=== PATIENT | male | born 1960 | race Caucasian/White ===

== ENCOUNTER 2018-05-31 09:05 | Inpatient (IN) | payer OTHER ==
[~2018-05-31] VITALS: Ht 167.6 cm; Wt 86.6 kg
[2018-05-31 10:26] LABS: BASOPHILS ABSOLUTE AUTO 0.03 K/mm3 (0.00-0.23); BASOPHILS PERCENT AUTO 0 % (0-2); EOSINOPHILS ABSOLUTE AUTO 0.12 K/mm3 (0.00-0.68); EOSINOPHILS PERCENT AUTO 1 % (0-6); Hemoglobin 8.5 g/dL (13.5-17.5); IMMATURE GRAN ABSOLUTE AUTO 0.04 K/mm3 (0.00-0.10); IMMATURE GRAN PERCENT AUTO 0 % (0-1); LYMPHOCYTES ABSOLUTE AUTO 0.71 K/mm3 (0.84-5.20); LYMPHOCYTES PERCENT AUTO 7 % (21-46); MONOCYTES ABSOLUTE AUTO 0.72 K/mm3 (0.16-1.47); MONOCYTES PERCENT AUTO 7 % (4-13); Mean Corpuscular HGB 29.1 pg (26.0-34.0); Mean Corpuscular HGB Conc 31.5 g/dL (31.5-36.5); Mean Corpuscular Volume 93 fL (80-100); NEUTROPHILS ABSOLUTE AUTO 8.43 K/mm3 (1.96-9.15); NEUTROPHILS PERCENT AUTO 84 % (41-73); Platelet Count 238 K/mm3 (150-400); RDW Standard Deviation 43.8 fL (35.1-46.3); Red Blood Cell Count 2.92 M/mm3 (4.30-5.90); White Blood Cell Count 10.05 K/mm3 (4.00-11.30)
[2018-05-31] MEDS ORDERED: CIPR500 (10:47)
[2018-05-31] MEDS ORDERED: DOXA4 PO (10:47)
[2018-05-31 10:55] LABS: Source, Urine Clean Catch
[2018-05-31 10:59] LABS: Appearance, Urine Cloudy (Clear); Bilirubin, Urine Neg (Neg); Blood, Urine 3+ (Neg); Color, Urine Yellow (P-Yellow); Glucose Qualitative, Urine Neg (Neg); Ketones, Urine Neg (Neg); Leukocyte Esterase, Urine 3+ (Neg); Nitrite, Urine Neg (Neg); Protein, Urine 2+ (Neg); Urobilinogen, Urine NORM (Normal)
[2018-05-31 11:02] LABS: Albumin, Blood 2.8 g/dL (3.4-5.0); Albumin/Globulin Ratio 0.7 (0.8-1.8); Bilirubin, Total 0.2 mg/dL (0.1-1.0); Bun/Creatinine Ratio 11.5 (12.0-20.0); Calcium, Blood 8.5 mg/dL (8.5-10.1); Creatinine, Blood 8.69 mg/dL (0.60-1.20); Globulin, Blood 4.3 g/dL (2.2-4.0); Total Protein, Blood 7.1 g/dL (6.4-8.2)
[2018-05-31 11:08] LABS: White Blood Cells, Urine TNTC /hpf (0-5)
[2018-05-31 11:10] LABS: Red Blood Cells, Urine 0-2 /hpf (0-2)
[2018-05-31 11:11] LABS: Bacteria Many /hpf; Squamous Epithelial Cells Not Seen /hpf (Few)
--- NOTE | 2018-05-31 13:45 | NUR ---
Initial Assessment: Pt arrived to room pcu 12 from ER. VSS. LS with wheezing throughout. HR reg. Bt positive with distended ABD. Melara cath draining large amounts of cloudy yellow urine that does have some sediment. +3 edema in BLE. Pt denies pain at this time. Pt oriented to room and unit. Denies questions. Call light in reach. Will monitor.
[2018-05-31 14:41] LABS: Percent Saturation 12.8 % (20.0-50.0)
--- NOTE | 2018-05-31 18:31 | NUR ---
Shift Summary: Pt resting in bed at this time. Has done well this shift. Melara Cath was draining cloudy yellow urine at admit but started to drain bloody urine with clots. Pt started to have pain in his urethra. States that it feels like he is "pissing razerblades". Pt was medicated with fentynal and order for peridium prn for bladder spasms. Pt denies other needs. No other changes this shift. Will report to night rn.
[2018-06-01 04:16] LABS: BASOPHILS ABSOLUTE AUTO 0.03 K/mm3 (0.00-0.23); BASOPHILS PERCENT AUTO 0 % (0-2); EOSINOPHILS ABSOLUTE AUTO 0.04 K/mm3 (0.00-0.68); EOSINOPHILS PERCENT AUTO 0 % (0-6); Hematocrit 29.4 % (37.0-53.0); Hemoglobin 9.7 g/dL (13.5-17.5); IMMATURE GRAN ABSOLUTE AUTO 0.03 K/mm3 (0.00-0.10); IMMATURE GRAN PERCENT AUTO 0 % (0-1); LYMPHOCYTES ABSOLUTE AUTO 0.63 K/mm3 (0.84-5.20); LYMPHOCYTES PERCENT AUTO 5 % (21-46); MONOCYTES ABSOLUTE AUTO 0.56 K/mm3 (0.16-1.47); MONOCYTES PERCENT AUTO 5 % (4-13); Mean Corpuscular HGB 29.8 pg (26.0-34.0); Mean Corpuscular Volume 91 fL (80-100); Mean Platelet Volume 9.1 fL (9.1-12.4); NEUTROPHILS ABSOLUTE AUTO 10.99 K/mm3 (1.96-9.15); NEUTROPHILS PERCENT AUTO 90 % (41-73); Platelet Count 275 K/mm3 (150-400); RDW Coefficient Variation 13.1 % (11.7-14.2); RDW Standard Deviation 43.2 fL (35.1-46.3); Red Blood Cell Count 3.25 M/mm3 (4.30-5.90); White Blood Cell Count 12.28 K/mm3 (4.00-11.30)
[2018-06-01 04:43] LABS: Alanine Aminotransfer (ALT/SGP 7 U/L (12-78); Albumin, Blood 2.5 g/dL (3.4-5.0); Albumin/Globulin Ratio 0.6 (0.8-1.8); Alk Phos 63 U/L (50-136); Anion Gap 12 mmol/L (6-16); Aspartate Aminotrans (AST/SGOT 8 U/L (12-37); Bilirubin, Direct 0.1 mg/dL (0.0-0.3); Bilirubin, Indirect 0.1 mg/dL (0.1-0.7); Bilirubin, Total 0.2 mg/dL (0.1-1.0); Blood Urea Nitrogen 77 mg/dL (8-24); Bun/Creatinine Ratio 13.1 (12.0-20.0); CO2, Blood 18 mmol/L (21-32); CPK Creatine Kinase 24 U/L (39-308); Calcium, Blood 8.1 mg/dL (8.5-10.1); Chloride, Blood 108 mmol/L (98-108); Globulin, Blood 3.9 g/dL (2.2-4.0); Glomerular Filtration Rate 10 (60-); Glucose, Blood 128 mg/dL (70-99); Magnesium, Blood 1.6 mg/dL (1.6-2.4); Phosphorus, Blood 5.1 mg/dL (2.5-4.9); Potassium, Blood 3.8 mmol/L (3.5-5.5); Sodium, Blood 138 mmol/L (136-145); Total Protein, Blood 6.4 g/dL (6.4-8.2)
--- NOTE | 2018-06-01 05:30 | NUR ---
SHIFT SUMMARY PATIENT CATHETER FLUSHED X2 D/T SLOWED UO AND TO PREVENT CLOT CLOGS. PATIENT HAD DIFFICULTY WITH PAIN CONTROL D/T POSSIBLE BLADDER SPASMS, FENTANYL INEFFECTIVE PER PATIENT. 1X FLEXERIL ORDER AQUIRED FROM RETAIL POS SPECIALIST MAGNOLIA, PATIENT STATED THAT THIS MEDICATION WAS MORE EFFECTIVE. PERRY FLOWING WELL, ALL OTHER VSS, CALL LIGHT WITHIN REACH, BED LOW AND LOCKED.
--- NOTE | 2018-06-01 17:55 | NUR ---
END OF SHIFT PT HAS HAD NO CHANGES, PT CLOTS ARE GETTING BETTER, VSS, FLUSHED FOLLEY 3 TIMES
--- NOTE | 2018-06-02 05:42 | NUR ---
PCU NOC SHIFT SUMMARY PATIENT ALERT AND ORIENTED X4 T/O SHIFT. PATIENT BEDREST PER PERSONAL COMFORT-PATIENT ENCOURAGED TO MOVE AND ROTATE IN UNIT BED T/O SHIFT. RESP E/U AT REST WITH COARSE COUGH AND LUNG SOUNDS NOTED AND WORSENING - BIOX REMAINS GREATER THAN 94% ON ROOM AIR. VSS. NO ACUTE DISTRESS NOTED AND NO ACUTE CHANGE. PATIENT DENIES ANY PAIN AND REFUSED FLEXRIL AND PERIDIUM T/O SHIFT WHEN OFFERED. PATIENTS PERRY CATH REMAINS IN PLACE AND PATENT DRAINING APPROX 1500 MLS OF URINE DURING NOC SHIFT. ABD REMAINS DISTENDED. FLUIDS RUNNING PER EMAR. PATIENT ENCOURAGED TO COUGH AND DEEP BREATH AND REPOSITON PRN. NO ACUTE NOTED. HEART RATE REMAINS 90'S SINUS WITH PAC'S. WILL CONTINUE TO MONITOR AND GIVE REPORT TO DAYSHIFT RN.
[2018-06-02 05:58] LABS: BASOPHILS ABSOLUTE AUTO 0.02 K/mm3 (0.00-0.23); BASOPHILS PERCENT AUTO 0 % (0-2); EOSINOPHILS ABSOLUTE AUTO 0.08 K/mm3 (0.00-0.68); EOSINOPHILS PERCENT AUTO 1 % (0-6); Hematocrit 27.9 % (37.0-53.0); Hemoglobin 9.1 g/dL (13.5-17.5); IMMATURE GRAN ABSOLUTE AUTO 0.06 K/mm3 (0.00-0.10); IMMATURE GRAN PERCENT AUTO 1 % (0-1); LYMPHOCYTES ABSOLUTE AUTO 0.68 K/mm3 (0.84-5.20); LYMPHOCYTES PERCENT AUTO 7 % (21-46); MONOCYTES PERCENT AUTO 5 % (4-13); Mean Corpuscular HGB 29.7 pg (26.0-34.0); Mean Corpuscular HGB Conc 32.6 g/dL (31.5-36.5); Mean Corpuscular Volume 91 fL (80-100); Mean Platelet Volume 8.9 fL (9.1-12.4); NEUTROPHILS ABSOLUTE AUTO 8.62 K/mm3 (1.96-9.15); NEUTROPHILS PERCENT AUTO 87 % (41-73); Platelet Count 244 K/mm3 (150-400); RDW Coefficient Variation 13.2 % (11.7-14.2); RDW Standard Deviation 43.4 fL (35.1-46.3); Red Blood Cell Count 3.06 M/mm3 (4.30-5.90); White Blood Cell Count 9.96 K/mm3 (4.00-11.30)
--- NOTE | 2018-06-02 06:23 | NUR ---
MD FERRO ROUNDED MD FERRO NOTIFIED (WHO IS COVERING FOR MARIE), THAT PATIENTS L/S SOUNDED COARSE W/ DRY COUGH AND POSSIBLE CONCERN FOR FLUID OVERLOAD. MD FERRO ALSO NOTIFIED THAT PATIENT CONTINUED TO HAVE LARGE URINE OUTPUT WITH BLOOD DISCOLORED URINE. NO NEW ORDERS GIVEN AT THIS TIME.
[2018-06-02 06:28] LABS: Albumin, Blood 2.2 g/dL (3.4-5.0); Anion Gap 8 mmol/L (6-16); Blood Urea Nitrogen 49 mg/dL (8-24); Bun/Creatinine Ratio 14.2 (12.0-20.0); CO2, Blood 25 mmol/L (21-32); Calcium, Blood 7.5 mg/dL (8.5-10.1); Chloride, Blood 105 mmol/L (98-108); Creatinine, Blood 3.44 mg/dL (0.60-1.20); Glomerular Filtration Rate 20 (60-); Glucose, Blood 106 mg/dL (70-99); Magnesium, Blood 1.3 mg/dL (1.6-2.4); Phosphorus, Blood 3.3 mg/dL (2.5-4.9); Potassium, Blood 3.1 mmol/L (3.5-5.5); Sodium, Blood 138 mmol/L (136-145)
--- NOTE | 2018-06-02 19:09 | NUR ---
END OF SHIFT PT HAS HAD NO CHANGES TO THE ASSESSMENT, VSS, PT ABLE TO FOLLOW COMMONADS, PT ABLE TO WALK TO THE BATHROOM, PT HAS HAD GREAT OUT PUT
--- NOTE | 2018-06-02 22:45 | NUR ---
RECEIVED HAND OFF FROM Yash WALDEN RN USING SBAR, TRANSPORTED TO ROOM VIA WHEELCHAIR. TRANSFERED TO BED WITH STANDBY ASSIST, TOLERATED WELL. PERSONAL BELONGINGS PLACED IN CHAIR AT BEDSIDE. AAO X3, CLARK, FOLLOEW ALL COMMANDS. LYING IN SEMI FOWLERS WITH EYES OPEN. ORIENETED TO ROOM, CALL SYSTEM, AND POC, VOICES UNDERSTANDING. RESPIRATIONS EVEN AND UNLABORED ON ROOM AIR. LUNG SOUNDS CLEAR ON LEFT SIDE AND COARSE ON RIGHT, REITERATED NEED TO USED FLUTTER VALVE 10X Q1HR WA, VOICES UNDERSTANDING. PERRY CATH DRAINING CLEAR YELLOW URINE WITH INTERMITTENT BLOOD TINGE AND CLOTS PRESENT. BASIL FLUSH NEEDED USING STERILE TECHNIQUE. CONTINENT OF BOWEL, REPORTES LAST BM ON 06/01/18, STATES THAT THIS IS NOT HIS NORMAL. LEFT FA 20G PIV IS PATENT, FLUSHING WITH EASE WHILE INFUSING 1/2NS AT 50ML/HR. SCD'S TO BLE FOR VTE PREVENTION. DENIES PAIN, DISCOMFORT, OR FURTHER NEEDS AT THIS TIME. SAFETY MEASURES IN PLACE. WILL CONTINUE TO MONITOR.
--- NOTE | 2018-06-02 22:54 | NUR ---
TRANSFER SUMMARY PATIENT TRANSFERED TO ROOM 210 - REPORT GIVEN TO NOAM ELAINE. PATIENT AMBULATED TO WHEEL CHAIR WELL AND WAS TRANSFERED TO NEW ROOM. IV FLUIDS CONTINUE TO RUN PER EMAR IN LEFT ARM IV. PERRY CATH DRAINING AND PATENT - PINK TO RED URINE NOTED WITH SEDIMENT NOTED. PATIENT ALERT AND ORIENTED X4. PATIENTS LUNG SOUNDS REMAIN COARSE - MD ALANIZ NOTIFIED AND DISCUSSED WITH RESPIRTORY CARE FOR NEW ORDERS - FLUTTER VALVE PROVIDED, EDUCATED AND ENCOURAGED PATIENT ON USE. NO ACUTE FINDINGS AT THIS TIME. PATIENT REMAINS ON TELE WITH HR IN THE 90 IN SINUS. VSS.
[2018-06-03 05:33] LABS: BASOPHILS ABSOLUTE AUTO 0.03 K/mm3 (0.00-0.23); BASOPHILS PERCENT AUTO 0 % (0-2); EOSINOPHILS ABSOLUTE AUTO 0.26 K/mm3 (0.00-0.68); EOSINOPHILS PERCENT AUTO 3 % (0-6); Hematocrit 29.2 % (37.0-53.0); Hemoglobin 9.4 g/dL (13.5-17.5); IMMATURE GRAN ABSOLUTE AUTO 0.06 K/mm3 (0.00-0.10); IMMATURE GRAN PERCENT AUTO 1 % (0-1); LYMPHOCYTES ABSOLUTE AUTO 1.28 K/mm3 (0.84-5.20); LYMPHOCYTES PERCENT AUTO 14 % (21-46); MONOCYTES ABSOLUTE AUTO 0.83 K/mm3 (0.16-1.47); MONOCYTES PERCENT AUTO 9 % (4-13); Mean Corpuscular HGB 30.2 pg (26.0-34.0); Mean Corpuscular HGB Conc 32.2 g/dL (31.5-36.5); Mean Platelet Volume 8.4 fL (9.1-12.4); NEUTROPHILS ABSOLUTE AUTO 6.65 K/mm3 (1.96-9.15); NEUTROPHILS PERCENT AUTO 73 % (41-73); Platelet Count 229 K/mm3 (150-400); RDW Coefficient Variation 13.2 % (11.7-14.2); RDW Standard Deviation 45.3 fL (35.1-46.3); Red Blood Cell Count 3.11 M/mm3 (4.30-5.90); White Blood Cell Count 9.11 K/mm3 (4.00-11.30)
[2018-06-03 05:37] LABS: Mean Corpuscular Volume 94 fL (80-100)
--- NOTE | 2018-06-03 05:53 | NUR ---
LYING IN SEMI FOWLERS WITH EYES CLOSED. REMAINS COMFORTABLE AT THIS TIME. NO FURTHER CHANGES SINCE TRANSFER TO ROOM. DENIES FURTHER NEEDS AT THIS TIME. SAFETY MEASURES IN PLACE. WILL CONTINUE TO MONITOR.
[2018-06-03 06:00] LABS: Albumin, Blood 2.3 g/dL (3.4-5.0); Anion Gap 8 mmol/L (6-16); Blood Urea Nitrogen 39 mg/dL (8-24); Bun/Creatinine Ratio 14.5 (12.0-20.0); CO2, Blood 27 mmol/L (21-32); Calcium, Blood 8.1 mg/dL (8.5-10.1); Chloride, Blood 102 mmol/L (98-108); Creatinine, Blood 2.69 mg/dL (0.60-1.20); Glomerular Filtration Rate 26 (60-); Glucose, Blood 93 mg/dL (70-99); Magnesium, Blood 1.7 mg/dL (1.6-2.4); Phosphorus, Blood 3.8 mg/dL (2.5-4.9); Sodium, Blood 137 mmol/L (136-145)
--- NOTE | 2018-06-03 07:30 | NUR ---
PT STATED NO BLADDER SPASMS AT THIS TIME PT HAS PINK TINT TO PERRY DRAINAGE BAG YELLOW IN THE TUBING PT STATED HE HAS HAD SOME MUSCLE TWITCHING DR FERRO BY TO SEE PT
--- NOTE | 2018-06-03 14:06 | NUR ---
pt stated he wanted to amb in the room still having some red drainge with clots
--- NOTE | 2018-06-03 14:51 | NUR ---
pt back into bed stated he had a hot flash when he was amb but it went away offered a fan pt declined at this time
--- NOTE | 2018-06-03 16:15 | NUR ---
pt watching tv no issues at this time
--- NOTE | 2018-06-03 17:50 | NUR ---
PT REQ FLEXARIL FOR BLADDER SPASMS PT SITTING UP ON EDGE OF THE BED STILL HAVING PINK DRAINAGE AND OCC CLOTS PT STATED IT FEELS LIKE HE NEEDS TO HAVE A BM
[2018-06-04 05:29] LABS: BASOPHILS ABSOLUTE AUTO 0.03 K/mm3 (0.00-0.23); BASOPHILS PERCENT AUTO 0 % (0-2); EOSINOPHILS ABSOLUTE AUTO 0.31 K/mm3 (0.00-0.68); EOSINOPHILS PERCENT AUTO 3 % (0-6); Hematocrit 28.4 % (37.0-53.0); Hemoglobin 9.1 g/dL (13.5-17.5); IMMATURE GRAN ABSOLUTE AUTO 0.04 K/mm3 (0.00-0.10); IMMATURE GRAN PERCENT AUTO 0 % (0-1); LYMPHOCYTES PERCENT AUTO 12 % (21-46); MONOCYTES ABSOLUTE AUTO 0.59 K/mm3 (0.16-1.47); MONOCYTES PERCENT AUTO 6 % (4-13); Mean Corpuscular HGB 29.8 pg (26.0-34.0); Mean Corpuscular Volume 93 fL (80-100); Mean Platelet Volume 8.7 fL (9.1-12.4); NEUTROPHILS ABSOLUTE AUTO 7.86 K/mm3 (1.96-9.15); NEUTROPHILS PERCENT AUTO 78 % (41-73); Platelet Count 223 K/mm3 (150-400); RDW Coefficient Variation 13.2 % (11.7-14.2); RDW Standard Deviation 45.1 fL (35.1-46.3); Red Blood Cell Count 3.05 M/mm3 (4.30-5.90); White Blood Cell Count 10.03 K/mm3 (4.00-11.30)
[2018-06-04 05:51] LABS: Albumin, Blood 2.3 g/dL (3.4-5.0); Anion Gap 9 mmol/L (6-16); Blood Urea Nitrogen 34 mg/dL (8-24); Bun/Creatinine Ratio 14.1 (12.0-20.0); CO2, Blood 27 mmol/L (21-32); Chloride, Blood 102 mmol/L (98-108); Creatinine, Blood 2.41 mg/dL (0.60-1.20); Glomerular Filtration Rate 29 (60-); Glucose, Blood 113 mg/dL (70-99); Phosphorus, Blood 2.9 mg/dL (2.5-4.9); Potassium, Blood 3.1 mmol/L (3.5-5.5); Sodium, Blood 138 mmol/L (136-145)
--- NOTE | 2018-06-04 06:28 | NUR ---
LYING IN SEMI FOWLERS WITH EYES CLOSED. REMAINS COMFORTABLE AT THIS TIME, DENIES ANY NEEDS OR WANTS. NO CHANGES SINCE START OF SHIFT. SAFETY MEASURES IN PLACE. WILL GIVE HAND OFF TO ONCOMING SHIFT USING SBAR DURING BEDSIDE REPORT.
--- NOTE | 2018-06-04 07:29 | NUR ---
dr tong by to see pt to trail oral kcl along with iv kcl today pt stated he still is having some mild bladder spasms when he coughs other dasilva it is better less bleeding noted in the malik drainge bag sediment still in tubing no clots at this time
--- NOTE | 2018-06-04 08:57 | NUR ---
meds given as sched dr rosales by to see pt pt asked when he may dishcarge home dr rosales stated that they will ask dr stiles when he is back on tuesday due to rf and the improvements
--- NOTE | 2018-06-04 12:04 | NUR ---
next dose of oral kcl is with dinner pt stated he had no nausea with the dose with breakfast pt visiting with family
--- NOTE | 2018-06-04 17:24 | NUR ---
PT LAYING IN BED UP TO EDGE OF THE BED TO EAT DINNER MEDS GIVEN SCHED
--- NOTE | 2018-06-04 18:00 | NUR ---
PERRY CATH TODAY LIGHT PINK NO CLOTS NOTED
[2018-06-05 05:39] LABS: BASOPHILS ABSOLUTE AUTO 0.02 K/mm3 (0.00-0.23); BASOPHILS PERCENT AUTO 0 % (0-2); EOSINOPHILS ABSOLUTE AUTO 0.34 K/mm3 (0.00-0.68); EOSINOPHILS PERCENT AUTO 4 % (0-6); Hematocrit 29.1 % (37.0-53.0); Hemoglobin 9.1 g/dL (13.5-17.5); IMMATURE GRAN ABSOLUTE AUTO 0.06 K/mm3 (0.00-0.10); IMMATURE GRAN PERCENT AUTO 1 % (0-1); LYMPHOCYTES ABSOLUTE AUTO 1.27 K/mm3 (0.84-5.20); LYMPHOCYTES PERCENT AUTO 14 % (21-46); MONOCYTES ABSOLUTE AUTO 0.74 K/mm3 (0.16-1.47); MONOCYTES PERCENT AUTO 8 % (4-13); Mean Corpuscular HGB Conc 31.3 g/dL (31.5-36.5); Mean Platelet Volume 8.5 fL (9.1-12.4); NEUTROPHILS ABSOLUTE AUTO 6.97 K/mm3 (1.96-9.15); NEUTROPHILS PERCENT AUTO 74 % (41-73); Platelet Count 225 K/mm3 (150-400); RDW Coefficient Variation 13.2 % (11.7-14.2); RDW Standard Deviation 46.6 fL (35.1-46.3); Red Blood Cell Count 3.03 M/mm3 (4.30-5.90)
[2018-06-05 05:40] LABS: Mean Corpuscular Volume 96 fL (80-100)
[2018-06-05 05:57] LABS: Albumin, Blood 2.3 g/dL (3.4-5.0); Anion Gap 8 mmol/L (6-16); Blood Urea Nitrogen 29 mg/dL (8-24); Bun/Creatinine Ratio 14.1 (12.0-20.0); CO2, Blood 27 mmol/L (21-32); Calcium, Blood 8.2 mg/dL (8.5-10.1); Chloride, Blood 104 mmol/L (98-108); Creatinine, Blood 2.06 mg/dL (0.60-1.20); Glomerular Filtration Rate 35 (60-); Glucose, Blood 94 mg/dL (70-99); Magnesium, Blood 1.6 mg/dL (1.6-2.4); Potassium, Blood 3.6 mmol/L (3.5-5.5); Sodium, Blood 139 mmol/L (136-145)
--- NOTE | 2018-06-05 17:32 | NUR ---
SHIFT SUMMARY PT RESTED MOST OF DAY. PERRY DRAINING CLEAR URINE. NO COMPLAINTS.
[2018-06-06 02:00] LABS: BASOPHILS ABSOLUTE AUTO 0.04 K/mm3 (0.00-0.23); BASOPHILS PERCENT AUTO 0 % (0-2); EOSINOPHILS ABSOLUTE AUTO 0.39 K/mm3 (0.00-0.68); EOSINOPHILS PERCENT AUTO 4 % (0-6); Hematocrit 30.7 % (37.0-53.0); Hemoglobin 9.6 g/dL (13.5-17.5); IMMATURE GRAN ABSOLUTE AUTO 0.07 K/mm3 (0.00-0.10); IMMATURE GRAN PERCENT AUTO 1 % (0-1); LYMPHOCYTES ABSOLUTE AUTO 1.24 K/mm3 (0.84-5.20); LYMPHOCYTES PERCENT AUTO 12 % (21-46); MONOCYTES ABSOLUTE AUTO 0.63 K/mm3 (0.16-1.47); MONOCYTES PERCENT AUTO 6 % (4-13); Mean Corpuscular HGB 29.8 pg (26.0-34.0); Mean Corpuscular HGB Conc 31.3 g/dL (31.5-36.5); Mean Corpuscular Volume 95 fL (80-100); Mean Platelet Volume 8.3 fL (9.1-12.4); NEUTROPHILS PERCENT AUTO 77 % (41-73); Platelet Count 259 K/mm3 (150-400); RDW Coefficient Variation 13.2 % (11.7-14.2); RDW Standard Deviation 45.5 fL (35.1-46.3); Red Blood Cell Count 3.22 M/mm3 (4.30-5.90); White Blood Cell Count 10.27 K/mm3 (4.00-11.30)
[2018-06-06 02:15] LABS: Albumin, Blood 2.4 g/dL (3.4-5.0); Anion Gap 8 mmol/L (6-16); Blood Urea Nitrogen 26 mg/dL (8-24); Bun/Creatinine Ratio 12.9 (12.0-20.0); CO2, Blood 27 mmol/L (21-32); Calcium, Blood 8.1 mg/dL (8.5-10.1); Chloride, Blood 106 mmol/L (98-108); Creatinine, Blood 2.01 mg/dL (0.60-1.20); Glomerular Filtration Rate 36 (60-); Glucose, Blood 100 mg/dL (70-99); Magnesium, Blood 1.6 mg/dL (1.6-2.4); Phosphorus, Blood 2.8 mg/dL (2.5-4.9); Potassium, Blood 3.9 mmol/L (3.5-5.5); Sodium, Blood 141 mmol/L (136-145)
--- NOTE | 2018-06-06 08:20 | NUR ---
SHIFT SUMMARY PT A&O X4 T/O SHIFT. NO ACUTE CHANGES. CATHETER SECURED; PATANT; CLEAR, YELLOW URINE DRAINING. IV GTT PER EMAR. OCC COUGH. CALL LIGHT IN REACH; PT DEMONSTRATES USE. REPORT GIVEN TO DAY SHIFT RN.
--- NOTE | 2018-06-06 10:40 | NUR ---
URINE AFTER UNCLAMPING TO ALLOW BLADDER TO DRAIN, MODERATE BLOOD CLOTS WERE DRAINED. WILL RECLAMP AND IF BLOOD CLOTS CONTINUE IN URINE, WILL CALL .
--- NOTE | 2018-06-06 17:55 | NUR ---
SHIFT SUMMARY PT FAILED BLADDER TRAINING AND PERRY REMOVAL. PERRY REPLACED AND WILL MONITOR OVERNIGHT FOR CLOTS/BLEEDING.
--- NOTE | 2018-06-06 22:29 | NUR ---
REPORT GIVEN TO NEXT RN. PERRY IS PATENT AND DRAINING. SEDIMENT IN URINE NOTED. PT DENIES PAIN. INDEPEND IN ROOM AND ABLE TO MAKE NEEDS KNOWN. NO ACUTE CHANGES.
--- NOTE | 2018-06-06 23:00 | NUR ---
ASSUMED CARE OF PT. PT IS SLEEPING AT THIS TIME. PERRY DRAINING WELL. CALL LIGHT IN REACH. CALL LIGHT IN REACH.
--- NOTE | 2018-06-07 05:45 | NUR ---
PT SLEPT T/O MOST OF SHIFT. CALLED APPROPRIATELY TO USE THE BSC AND TOLERATED ACTIVITY WELL WITH 4L NC. MEDICATED ONCE WITH ROXANOL. PT DID HOWEVER TAKE OXYGEN OFF IN SLEEP AND RT NOTED SPO2 DROPPED TO 80% ON RA. DID COME UP QUICKLY AFTER REPLACING NC. PLAN FOR DC HOME TODAY ON HOSPICE AT 1130. CALL LIGHT IN REACH.
--- NOTE | 2018-06-07 05:53 | NUR ---
DID WELL DURING NIGHT. SLEPT T/O MOST OF SHIFT. DENIES ANY C/O THIS AM. PERRY STILL IN PLACE AND DRAINING WELL. PLAN FOR DC HOME WITH PERRY POSSIBLY AND F/U WITH UROLOGY OUTPT. CALL LIGHT IN REACH.
[2018-06-07 06:15] LABS: Hematocrit 31.5 % (37.0-53.0)
[2018-06-07 06:30] LABS: Albumin, Blood 2.5 g/dL (3.4-5.0); Anion Gap 6 mmol/L (6-16); Blood Urea Nitrogen 28 mg/dL (8-24); Bun/Creatinine Ratio 13.7 (12.0-20.0); CO2, Blood 26 mmol/L (21-32); Calcium, Blood 8.3 mg/dL (8.5-10.1); Chloride, Blood 107 mmol/L (98-108); Creatinine, Blood 2.04 mg/dL (0.60-1.20); Glomerular Filtration Rate 36 (60-); Glucose, Blood 98 mg/dL (70-99); Magnesium, Blood 1.7 mg/dL (1.6-2.4); Phosphorus, Blood 2.9 mg/dL (2.5-4.9); Potassium, Blood 4.1 mmol/L (3.5-5.5); Sodium, Blood 139 mmol/L (136-145)
[2018-06-07] MEDS ORDERED: ALBU90OI INH (08:46)
[2018-06-07] MEDS ORDERED: CYCL10 PO (08:47)
[2018-06-07] MEDS ORDERED: DOCU100 PO (08:47)
[2018-06-07] MEDS ORDERED: FOLI1 PO (08:47)
[2018-06-07] MEDS ORDERED: AMPI500 PO (08:48)
[2018-06-07] MEDS ORDERED: IRON150C PO (08:49)
[2018-06-07] MEDS ORDERED: POTCHL20ER PO (08:51)
[2018-06-07] MEDS ORDERED: Super B-50 Com1 EACH PO (08:51)
[2018-06-07] MEDS ORDERED: SACC250C PO (08:52)
--- NOTE | 2018-06-07 10:37 | NUR ---
DISCHARGE PT HAS DONE WELL UNDERSTANDING PERRY EDUCATION AND UTI PREVENTION. F/U MADE WITH DR SALAZAR AND THIS WILL BE WHERE UROLOGY WILL SEE PT PER DR SALAZAR.
== END 2018-06-07 11:04 | disposition home or self-care (01) | DRG 683 ==
LOC: ER 09:05 → PCU 13:44 → SURS 06-02 22:45
PROVIDERS: Emergency Medicine; Internal Medicine Nephrology; ADMIT Family Medicine
DX: N17.9 Acute kidney failure, unspecified (principal); N13.8 Other obstructive and reflux uropathy; E87.2 Acidosis; N13.6 Pyonephrosis; N40.1 Benign prostatic hyperplasia with lower urinary tract symptoms; E83.42 Hypomagnesemia; E88.09 Other disorders of plasma-protein metabolism, not elsewhere classified; E87.70 Fluid overload, unspecified; E87.6 Hypokalemia; J44.9 Chronic obstructive pulmonary disease, unspecified; N18.9 Chronic kidney disease, unspecified; R60.0 Localized edema; E86.9 Volume depletion, unspecified; R07.1 Chest pain on breathing; R80.9 Proteinuria, unspecified; R31.0 Gross hematuria; E53.8 Deficiency of other specified B group vitamins; D63.1 Anemia in chronic kidney disease; B96.89 Other specified bacterial agents as the cause of diseases classified elsewhere; Z88.5 Allergy status to narcotic agent; Z87.891 Personal history of nicotine dependence; Z28.20 Immunization not carried out because of patient decision for unspecified reason
CPT/HCPCS: 36415; 51702; 51798; 71046; 76770; 80048; 80053; 80069; 81001; 82248; 82550; 82607; 82728; 82746; 83540; 83550; 83735; 84100; 84550; 85014; 85018; 85025; 85027; 87086; 93005; 93010; 94667; 94760; 96365; 99285-25; J0290; J0696; J0881; J1940; J3010; J3475; J3480

== ENCOUNTER → 2022-10-27 | Outpatient (CLI) | payer OTHER ==
[~2022-10-27] MED LIST: ALBU90OI INH; AMPI500 PO; CIPR500; CYCL10 PO; DOCU100 PO; DOXA4 PO; FOLI1 PO; IRON150C PO; POTCHL20ER PO; SACC250C PO; Super B-50 Com1 EACH PO
== END ==
LOC: LAB SHORT 22:56 → LAB 22:56
DX: L08.9 Local infection of the skin and subcutaneous tissue, unspecified (principal)
CPT/HCPCS: 87102; 87106

== ENCOUNTER → 2023-03-08 | Outpatient (CLI) | payer OTHER | END | disposition home or self-care (01) | LOC: LAB 17:22 → LAB SHORT 17:22 | DX: D75.1 Secondary polycythemia (principal) | CPT/HCPCS: 82668 ==

== ENCOUNTER → 2024-06-08 | Outpatient (CLI) | payer OTHER ==
[2024-06-08 15:32] LABS: BASOPHILS ABSOLUTE AUTO 0.04 K/mm3 (0.00-0.23); BASOPHILS PERCENT AUTO 1 % (0-2); EOSINOPHILS ABSOLUTE AUTO 0.08 K/mm3 (0.00-0.68); EOSINOPHILS PERCENT AUTO 1 % (0-6); Hematocrit 52.4 % (37.0-53.0); Hemoglobin 17.4 g/dL (13.5-17.5); IMMATURE GRAN ABSOLUTE AUTO 0.04 K/mm3 (0.00-0.10); IMMATURE GRAN PERCENT AUTO 1 % (0-1); LYMPHOCYTES ABSOLUTE AUTO 1.14 K/mm3 (0.84-5.20); LYMPHOCYTES PERCENT AUTO 15 % (21-46); MONOCYTES ABSOLUTE AUTO 0.57 K/mm3 (0.16-1.47); MONOCYTES PERCENT AUTO 7 % (4-13); Mean Corpuscular HGB 32.3 pg (26.0-34.0); Mean Corpuscular HGB Conc 33.2 g/dL (31.5-36.5); Mean Corpuscular Volume 97 fL (80-100); Mean Platelet Volume 9.3 fL (9.1-12.4); NEUTROPHILS ABSOLUTE AUTO 5.87 K/mm3 (1.96-9.15); NEUTROPHILS PERCENT AUTO 76 % (41-73); Platelet Count 169 K/mm3 (150-400); RDW Coefficient Variation 14.3 % (11.7-14.2); RDW Standard Deviation 50.8 fL (35.1-46.3); Red Blood Cell Count 5.39 M/mm3 (4.30-5.90); White Blood Cell Count 7.74 K/mm3 (4.00-11.30)
== END | disposition home or self-care (01) ==
LOC: LAB SHORT 14:38 → LAB 14:38
PROVIDERS: Internal Medicine Hematology & Oncology
DX: D75.1 Secondary polycythemia (principal)
CPT/HCPCS: 85025